=== PATIENT | female | born 1985 | race Native Hawaiian/Other Pacific Islander ===

== ENCOUNTER 2017-01-22 11:29 | Outpatient (CLI) | payer OTHER ==
[2017-01-22 12:19] LABS: PLATELET COUNT 193 K/uL (152-353)
[2017-01-22 12:21] LABS: POTASSIUM 3.5 mmol/L (3.6-5.2)
== END 2017-01-22 18:56 | disposition home or self-care (01) ==
LOC: LAB 11:29
PROVIDERS: Emergency Medicine
DX: R10.84 Generalized abdominal pain (principal); R19.7 Diarrhea, unspecified; E86.0 Dehydration; R25.2 Cramp and spasm; R53.1 Weakness
CPT/HCPCS: 80053; 81000; 82272; 83735; 85027; 87015; 87045; 87205; 87324; 87425; 87449; 87899

== ENCOUNTER 2017-01-22 13:50 | Inpatient (IN) | payer OTHER ==
[~2017-01-22] VITALS: Ht 165.1 cm; Wt 80.9 kg
--- NOTE | 2017-01-22 15:38 | NUR ---
PT TO ROOM 1112 VIA WC. PT ALERT AND ORIENTED. ASSESSMENT COMPLETE. NAD NOTED AT THIS TIME. IV STARTED TO R AC WITH 22G ANGIOCATH PER AIRAM WADE RN. PT TOLERATED WELL. IV BOLUS STARTED ORDERED. PT INSTRUCTED ON DIET AND ORIENTED TO ROOM AND CONTROLS. PT VERBALIZED UNDERSTANDING.
[2017-01-22 16:38] VITALS: BP 113/63; TEMP 98.4; Ht 165.1 cm; Wt 80.9 kg
[2017-01-22 20:00] VITALS: BP 106/56; TEMP 98.8
--- NOTE | 2017-01-22 22:19 | NUR ---
01/22/17 STOOL SAMPLE COLLECTED SENT TO LAB[facility]
[2017-01-23] VITALS: BP 114/68; TEMP 98.4
[2017-01-23 04:00] VITALS: BP 94/54; TEMP 98.6
[2017-01-23 05:31] LABS: PLATELET COUNT 161 K/uL (152-353)
[2017-01-23 05:48] LABS: POTASSIUM 3.6 mmol/L (3.6-5.2); SODIUM 139 mmol/L (136-145)
[2017-01-23 08:00] VITALS: BP 108/64; TEMP 98.2
[2017-01-23 12:00] VITALS: BP 120/59; TEMP 98.6
[2017-01-23 16:00] VITALS: BP 110/62; TEMP 98.2
[2017-01-23 20:00] VITALS: BP 102/57; TEMP 98.5
[2017-01-24] VITALS: BP 102/48; TEMP 98.5
[2017-01-24 04:00] VITALS: BP 108/62; TEMP 97.9
[2017-01-24 06:09] LABS: PLATELET COUNT 136 K/uL (152-353)
[2017-01-24 06:19] LABS: POTASSIUM 4.3 mmol/L (3.6-5.2); SODIUM 137 mmol/L (136-145)
[2017-01-24 08:00] VITALS: BP 112/63; TEMP 99.1
[2017-01-24 12:00] VITALS: BP 107/63; TEMP 98.4
[2017-01-24 16:00] VITALS: BP 113/66; TEMP 97.5
[2017-01-24 20:00] VITALS: BP 121/64; TEMP 98
[2017-01-25 00:29] VITALS: BP 117/57; TEMP 99
[2017-01-25 03:50] VITALS: BP 103/60; TEMP 99
[2017-01-25 08:00] VITALS: BP 99/51; TEMP 98.8
[2017-01-25 08:49] LABS: PLATELET COUNT 172 K/uL (152-353)
[2017-01-25 09:05] LABS: POTASSIUM 4.3 mmol/L (3.6-5.2)
[2017-01-25] MEDS ORDERED: PROTONIX 40MG TAB PO (11:15)
[2017-01-25] MEDS ORDERED: AMOXIL 500MG CAP PO (11:15)
[2017-01-25] MEDS ORDERED: CLAR250T2 PO (11:15)
--- NOTE | 2017-01-25 11:18 | NUR ---
DC INSTRUCTIONS GIVEN TO PT. PT VERBALIZED UNDEERSTANDING. IV DC'D WITH CANNULA INTACT AND SITE CARE PROVIDED. RX CALLED TO [facility] PER FLORINDA HARMON. NAD NOTED. PT LEFT VIA AMBULATORY WITH TECH AT THIS TIME. PT INSTRUCTED TO FOLLOW UP WITH DR ESCALERA IN 1 WEEK. PT STATES SHE WILL CALL FOR APPT.
[2017-01-25 11:38] VITALS: BP 109/69; TEMP 98.8
== END 2017-01-25 11:22 | disposition home or self-care (01) | DRG 373 ==
LOC: MED/SURG 13:50
PROVIDERS: ADMIT Emergency Medicine
DX: A04.8 Other specified bacterial intestinal infections (principal); R10.84 Generalized abdominal pain; R19.7 Diarrhea, unspecified; E86.0 Dehydration; R25.2 Cramp and spasm; R53.1 Weakness
CPT/HCPCS: 36415; 80048; 80053; 81000; 82150; 82272; 83690; 83735; 85027; 86318; 87015; 87045; 87205; 87324; 87328; 87329; 87425; 87449; 87899; 96365; 96366; 96367; 96372; 96374; 96375; J0500; J2405; J3475; J3490

== ENCOUNTER 2017-11-26 20:26 | Emergency (ER) | payer OTHER ==
[~2017-11-26] VITALS: Ht 165.1 cm; Wt 74.8 kg
[~2017-11-26 20:26] MED LIST: AMOXIL 500MG CAP PO; CLAR250T2 PO; PROTONIX 40MG TAB PO
[2017-11-26 20:45] VITALS: BP 123/69; TEMP 99.2
== END 2017-11-26 22:15 | disposition home or self-care (01) ==
LOC: ED 20:26
DX: S82.64XA Nondisplaced fracture of lateral malleolus of right fibula, initial encounter for closed fracture (principal); Z33.1 Pregnant state, incidental; W17.2XXA Fall into hole, initial encounter
CPT/HCPCS: 99283; L4350